=== PATIENT | male | born 1975 | race Caucasian/White ===

== ENCOUNTER 2016-07-27 21:16 | Emergency (ER) | payer OTHER ==
[~2016-07-27] VITALS: Ht 172.7 cm; Wt 89.7 kg
[2016-07-27 21:31] VITALS: Ht 172.7 cm; Wt 89.7 kg
[2016-07-27] MEDS ORDERED: ONDANSETRON (ODT) 4 MG TAB ODT STA (22:05)
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
[2016-07-27] MEDS ORDERED: DICYCLOMINE 10 MG CAP PO ONE (22:30)
[2016-07-27 22:49] LABS: ADD SCAN DIFF NO
[2016-07-27 22:50] LABS: BASOPHILS % 0.5 % (0.0-2.0); EOSINOPHILS # 0.1 10^3/ul (0.0-0.5); EOSINOPHILS % 1.8 % (0.0-7.0); HEMOGLOBIN 14.6 g/dl (14.0-18.0); LYMPHOCYTES # 2.1 10^3/ul (0.8-2.9); MEAN CORPUSCULAR HEMOGLOBIN 28.5 pg (29.0-33.0); MEAN CORPUSCULAR VOLUME 83.8 fl (82.0-101.0); MEAN PLATELET VOLUME 9.6 fl (7.4-10.4); MONOCYTE # 0.8 10^3/ul (0.3-0.9); MONOCYTES % 12.7 % (0.0-11.0); NEUTROPHILS % 49.8 % (39.0-77.0); PLATELET COUNT 334 10^3/UL (140-415); RED BLOOD COUNT 5.13 10^6/ul (4.70-6.10); RED CELL DISTRIBUTION WIDTH 12.1 % (11.5-14.5)
[2016-07-27 23:01] LABS: ALBUMIN/GLOBULIN RATIO 1.29; BILIRUBIN,INDIRECT 0.2 mg/dl (0-1.1); BILIRUBIN,TOTAL 0.2 mg/dl (0.2-1.3); CREATININE 1.08 mg/dl (0.61-1.24); TOTAL PROTEIN 7.1 g/dl (6.1-8.1)
[2016-07-27 23:02] LABS: CALCIUM 8.7 mg/dl (8.4-10.2)
[2016-07-27] MEDS ORDERED: IBUP-1542 PO (23:46)
[2016-07-27] MEDS ORDERED: ONDA4TAB14 PO (23:46)
[2016-07-27] MEDS ORDERED: DICY10CA60 PO (23:46)
== END 2016-07-28 00:05 | disposition home or self-care (01) ==
LOC: FTE 21:16
DX: A08.4 Viral intestinal infection, unspecified (principal); R11.10 Vomiting, unspecified
CPT/HCPCS: 36415; 80053; 83690; 85025; Z7502; Z7610; 99284